=== PATIENT | female | born 2000 | race Caucasian/White ===

== ENCOUNTER 2021-10-08 01:14 | Emergency (ER) | payer SELFPAY ==
[~2021-10-08] VITALS: Ht 157.5 cm; Wt 45.4 kg
== END 2021-10-08 03:32 | disposition home or self-care (01) ==
LOC: ED 01:14
DX: F41.9 Anxiety disorder, unspecified (principal)
CPT/HCPCS: 36415; 80053; 81001; 84703; 85025; 99283; G0480